=== PATIENT | male | born 1965 | race Two or more races ===

== ENCOUNTER 2020-03-28 16:15 | Outpatient (REF) | payer OTHER, SELFPAY | END 2020-03-28 16:16 | disposition home or self-care (01) | LOC: HO.LAB 16:15 | PROVIDERS: Visit Provider Internal Medicine | DX: Z20.822 Contact with and (suspected) exposure to COVID-19 (principal) | CPT/HCPCS: 36415; C9803; U0003; U0005 ==

== ENCOUNTER 2020-03-28 16:34 | Outpatient (REF) | payer OTHER, SELFPAY ==
[2020-03-28 18:09] LABS: Prostate Specific Antigen 0.16 ng/mL (<0.05-4.0)
== END 2020-03-28 16:35 | disposition home or self-care (01) ==
LOC: HO.LAB 16:34
PROVIDERS: Visit Provider Urology
DX: Z12.5 Encounter for screening for malignant neoplasm of prostate (principal); C61 Malignant neoplasm of prostate
CPT/HCPCS: 36415; 84153

== ENCOUNTER → 2020-04-04 14:09 | Outpatient (BNVA) | payer OTHER, SELFPAY | PROVIDERS: Visit Provider Urology | DX: C61 Malignant neoplasm of prostate (principal); N52.01 Erectile dysfunction due to arterial insufficiency | CPT/HCPCS: 99212 ==

== ENCOUNTER 2020-05-13 08:36 | Day surgery (SDC) | payer OTHER, SELFPAY ==
[2020-05-07 10:10] VITALS: BMI 27.1
[2020-05-10 09:24] VITALS: BMI 29.8
[2020-05-13 09:51] VITALS: BP 137/85; PULSE 66; RESP 16; TEMP 36.3; O2SAT 96
[2020-05-13 10:15] LABS: Glucose, Whole Blood 111 mg/dL (60-115)
[2020-05-13] MEDS: Lactated Ringers 1,000 ML 50 ML IV (10:17)
--- NOTE | 2020-05-13 10:32 | HO.ANESPROP2 ---
[facility] Active Problems Active Problems: All Active Problems (Updated 05/10/20 @ 09:28 by Martha Meeks) Prostate cancer (Acute) Erectile dysfunction due to arterial insufficiency (Acute) Past Medical History Medical History Depression Diabetes Elevated cholesterol Erectile dysfunction History of prostate cancer Low back pain Shoulder pain, bilateral Sleep apnea Smoker Surgical History Surgical History Hx of colonoscopy Hx of prostate biopsy Social History Social History Alcohol intake: never Smoking Status: Current every day smoker Tobacco Type: Cigarette Cigarettes Per Day: 8 Use of substances other than those prescribed or required for medical reasons: Yes Substance Use Type: Marijuana Substance Use Frequency: Daily Advance Directives: No Advance Directives Information Provided: No Advance Directives on File: No Meds Allergies Allergy/AdvReac Type Severity Reaction Status Date / Time No Known Allergies Allergy Verified 05/13/20 09:48 [No Known Allergies*] Active Medications: Current Medications Generic Name Dose Route Start Last Admin Trade Name Filiq PRN Reason Stop Dose Admin Lactated Ringer's 1,000 mls @ 50 mls/hr 05/13/20 07:30 05/13/20 10:17 Lr IV 50 mls/hr .Q20H MARIBEL Administration Ceftriaxone Sodium 2 gm/ 50 mls @ 100 mls/hr 05/13/20 10:07 Sodium Chloride IV 05/13/20 10:36 ONCE ONE Gentamicin Sulfate 80 mg/ 102 mls @ 100 mls/hr 05/13/20 10:10 Sodium Chloride IV 05/13/20 11:11 ONCE ONE Home Medications Medication Instructions Recorded Confirmed Last Taken Type alcohol swabs pad TOPICAL DAILY 04/04/20 Unknown History atorvastatin 80 mg tablet 80 mg PO DAILY 04/04/20 Unknown History blood sugar diagnostic #10 ea 04/04/20 Unknown History lancets 33 gauge #100 ea 04/04/20 Unknown History metformin 500 mg tablet 500 mg PO BID 04/04/20 05/10/20 Unknown History tadalafil 10 mg tablet 10 mg PO DAILY PRN 04/04/20 Unknown History tramadol 50 mg tablet 50 mg PO BID PRN 04/04/20 05/10/20 Unknown History Exam Exam Date and Time: May 13, 2020 1032 Height,Weight and Vital Signs: Height 6 ft Weight 99.79 kg Last Vital Signs Temp 97.4 F 05/13/20 09:51 Pulse 66 05/13/20 09:51 Resp 16 05/13/20 09:51 BP 137/85 05/13/20 09:51 Pulse Ox 96 05/13/20 09:51 Pertinent Lab Results Pertinent Lab Results: Laboratory Tests 05/13/20 10:00 POC Glucose 111 Airway Mallampati Class: II TM Dist: >3cm Neck ROM: Full Denture: Upper Heart: RRR Lungs: NL Assessment and Plan Assessment Anesthesia Assessment: Anesthesia Plan Discussed and Chart Reviewed Final Anesthetic Review NPO: Yes ASA Class: III Final Preanesthetic Review: No Changes in Pt Med Stat, Meds/Allgs Chart Reviewed, Consent Obtained/Reviewed and Anes Risks/Benef Reviewed Patient Risk: Intermediate Procedure Risk: Low Anesthetic Plan Anesthetic Plan: GA Disposition: Standard PACU
[2020-05-13] MEDS: cefTRIAXone sodium 2 GM in 0.9 % Sodium Chloride 50 ML IV (10:33)
--- NOTE | 2020-05-13 11:03 | MHC.SHP ---
Pre-Procedural Eval Section B Chief Complaint: ED Details of Present Illness: persistent following treatment for prostate cancer Relevant Family History (Specify if Yes): No Relevant Social History: None Present Medications: see Short Stay Collaborative assessment Medical History: Significant History History of Previous Operations: No relevant previous surgery Allergies: Allergies Allergy/AdvReac Type Severity Reaction Status Date / Time No Known Allergies Allergy Verified 05/13/20 09:48 [No Known Allergies*] Review of Systems Sugical H&P ROS: Negative: Constitution, Cardiovascular, Respiratory, Neurological, Psychiatric, Hem-Onc, Allergic/Immunologic, Gastrointestinal, Genitourinary, Musculoskeletal, Integumentary, Endocrine and Eyes/Ears/Nose/Throat Exam Surgical H&P Exam: Normal: HEENT, Normal: Heart, Normal: Lungs, Normal: Extremities, Normal: Abdomen, Normal: Skin and Normal: Neurological Plan Diagnosis/Plan: Unchanged ( placement of penile prosthetic) I have reviewed the history and physical and performed a pertinent physical examination on my patient. No changes have occurred unless specified.
[2020-05-13 12:09] VITALS: BP 123/68; PULSE 66; RESP 16; TEMP 36.6; O2SAT 94
[2020-05-13 12:15] VITALS: BP 127/81; PULSE 68; RESP 18; O2SAT 96
[2020-05-13 12:20] VITALS: BP 139/88; PULSE 64; RESP 16; O2SAT 97
[2020-05-13 12:25] VITALS: BP 126/89; PULSE 64; RESP 18; O2SAT 98
== END 2020-05-13 12:51 | disposition home or self-care (01) ==
PROVIDERS: Visit Provider Urology
DX: N52.9 Male erectile dysfunction, unspecified (principal); Z53.8 Procedure and treatment not carried out for other reasons; E11.9 Type 2 diabetes mellitus without complications
CPT/HCPCS: 82947; J0696; J1100; J1580; J2250; J2405; J3010; J3370

== ENCOUNTER 2020-05-27 07:01 | Day surgery (SDC) | payer OTHER, SELFPAY ==
--- NOTE | 2020-05-23 15:04 | P.CONAN_ITS ---
Documented by User: Catherine Morse 05/23/20 15:06 HPI - Anesthesia Eval Consult details Narrative: 55yo M for Penile Prosthesis Insertion (Case was aborted 05/13/20 d/t power outage in OR) PMF Active Problems Active Problems: All Active Problems (Updated 05/10/20 @ 09:28 by Martha Meeks) Prostate cancer (Acute) Erectile dysfunction due to arterial insufficiency (Acute) Past Medical History Medical History Depression Diabetes Elevated cholesterol Erectile dysfunction History of prostate cancer Low back pain Shoulder pain, bilateral Sleep apnea Smoker Surgical History Surgical History Hx of colonoscopy Hx of prostate biopsy Social History Social History Alcohol intake: never Smoking Status: Current every day smoker Tobacco Type: Cigarette Packs Per Day: 0.5 Cigarettes Per Day: 10.0 Use of substances other than those prescribed or required for medical reasons: No Substance Use Type: Marijuana Advance Directives: No Advance Directives Information Provided: Yes Meds Allergies Allergy/AdvReac Type Severity Reaction Status Date / Time No Known Allergies Allergy Verified 05/13/20 09:48 [No Known Allergies*] Home Medications Medication Instructions Recorded Confirmed Last Taken Type alcohol swabs pad TOPICAL DAILY 04/04/20 Unknown History atorvastatin 80 mg tablet 80 mg PO DAILY 04/04/20 Unknown History blood sugar diagnostic #10 ea 04/04/20 Unknown History lancets 33 gauge #100 ea 04/04/20 Unknown History metformin 500 mg tablet 500 mg PO BID 04/04/20 05/10/20 Unknown History tadalafil 10 mg tablet 10 mg PO DAILY PRN 04/04/20 Unknown History tramadol 50 mg tablet 50 mg PO BID PRN 04/04/20 05/10/20 Unknown History Exam Exam Date and Time: May 23, 2020 1504 Assessment and Plan Assessment Anesthesia Assessment: Chart Reviewed Documented by User: Sarah Morton 05/27/20 08:44 PMFSH Past Medical History Medical History Depression Diabetes Elevated cholesterol Erectile dysfunction History of prostate cancer Low back pain Shoulder pain, bilateral Sleep apnea Smoker Surgical History Surgical History Hx of colonoscopy Hx of prostate biopsy Social History Social History Alcohol intake: never Smoking Status: Current every day smoker Tobacco Type: Cigarette Packs Per Day: 0.5 Cigarettes Per Day: 10.0 Use of substances other than those prescribed or required for medical reasons: No Substance Use Type: Marijuana Advance Directives: No Advance Directives Information Provided: Yes Meds Allergies Allergy/AdvReac Type Severity Reaction Status Date / Time No Known Allergies Allergy Verified 05/13/20 09:48 [No Known Allergies*] Home Medications Medication Instructions Recorded Confirmed Last Taken Type alcohol swabs pad TOPICAL DAILY 04/04/20 Unknown History atorvastatin 80 mg tablet 80 mg PO DAILY 04/04/20 Unknown History blood sugar diagnostic #10 ea 04/04/20 Unknown History lancets 33 gauge #100 ea 04/04/20 Unknown History metformin 500 mg tablet 500 mg PO BID 04/04/20 05/10/20 Unknown History tadalafil 10 mg tablet 10 mg PO DAILY PRN 04/04/20 Unknown History tramadol 50 mg tablet 50 mg PO BID PRN 04/04/20 05/10/20 Unknown History Exam Airway Mallampati Class: II TM Dist: >3cm Neck ROM: Full Partial: Upper Heart: RRR Lungs: CTA Assessment and Plan Assessment Anesthesia Assessment: Anesthesia Plan Discussed and Chart Reviewed Final Anesthetic Review NPO: Yes ASA Class: III Final Preanesthetic Review: No Changes in Pt Med Stat and Consent O btained/Reviewed Patient Risk: Intermediate Procedure Risk: Intermediate Anesthetic Plan Anesthetic Plan: GA Disposition: Standard PACU
[2020-05-27] VITALS (11 sets, daily range): BP systolic 115–136; BP diastolic 69–97; PULSE 57–97; RESP 16–18; TEMP 36–36.1; O2SAT 92–97; BMI 29.8
[2020-05-27 08:35] LABS: Glucose, Whole Blood 116 mg/dL (60-115)
[2020-05-27] MEDS: Lactated Ringers 1,000 ML 50 ML IV (08:45)
[2020-05-27] MEDS: cefTRIAXone sodium 2 GM in 0.9 % Sodium Chloride 50 ML IV (09:53)
--- NOTE | 2020-05-27 10:33 | MHC.SHP ---
Pre-Procedural Eval Section A The patient is an INPATIENT: No Changes since office visit: No Cold of Flu in the past 2 weeks, No New Medical Problems, No Changes in Medication and No Patient answered all questions The History & Physical has been completed within 30 days and I have reviewed it.: Yes Section B Chief Complaint: ED Allergies: Allergies Allergy/AdvReac Type Severity Reaction Status Date / Time No Known Allergies Allergy Verified 05/13/20 09:48 [No Known Allergies*] Plan Diagnosis/Plan: Unchanged (Penile prosthesis. Case have been delayed after OR power loss last week.) I have reviewed the history and physical and performed a pertinent physical examination on my patient. No changes have occurred unless specified.
--- NOTE | 2020-05-27 13:23 | W.PM.OPN ---
Operative Note Operative Note Date of Service: 05/27/20 Narrative: PreOperative Diagnosis: Erectile dysfunction secondary to radiation therapy for prostate cancer Post Operative Diagnosis: Erectile dysfunction secondary to radiation therapy for prostate cancer Procedure: 1. Placement of penile prosthetic 2. Scrotalplasty Surgeon: Dr Nicanor Wagner Anesthesia: General Indications for procedure: 55-year-old male. Background of diabetes. Had Syeda 8 prostate cancer and was managed with radiation. Subsequently has had inability to gain erections. Has trialed oral medication, penile injections and penile vacuum pump. He requested penile prosthesis. He is aware of the risks and benefits related to infection, bleeding, need for revision. Procedure: After informed consent was verified the patient was brought to the operating room and placed in a supine position. anesthesia was administered per protocol. The patient was prepped and draped in sterile fashion. We used a double prep with chlorhexidine and 3 minutes wait time for full drying. After the patient was prepped and draped in sterile fashion Guerra catheter was placed. The bladder was emptied. This was then clamped on the field. A [place] retractor was placed. The penis was examined. On the ventral surface the penoscrotal junction could be seen to ride on the shaft. In order to gain maximum length for the prosthetic a check bernadette was placed on the scrotal skin. This will have the effect of dropping the penoscrotal back approximately 1 in and adding to the appearance of the length of the penis. This incision allowed for lateral and vertical movement of the skin. We then were able to dissect down and dissected the corpora bilaterally. We stayed in avascular plane. Once this area was detected we were able to use books on a tractor. We then pre-placed our stay sutures. We placed for stay sutures. Then used a knife to divide in into the corpora. We performed this 1st on the left-hand side. We dilated corpora. Initially on the left side we dilated using the straight dilators that come with the AMS kit. We realizes we got to the 12 dilator that there was crossover in the dilatation. We redilated. At this point we decided to dilate on the right side. We placed a 4 stay sutures. We were able to dilate using Hegar dilators and leaving the [address] then redilated on the left side to make sure there was no crossover. At this point we were happy with our dilation of the corpora. We then went to placement of the penile prosthetic. The reservoir was the 1st thing placed. A to do this we were able to dissect and then pop through the inguinal canal posterior wall into the space of Retzius. We placed a low-profile balloon. We filled this with 100 cc in it appeared to be in good position. We then able to clamp the tubing with 2 rubber shots. The next step was to place the penile prosthetic. We placed the right arm of the prosthetic 1st the prosthetic had been measured at 21 cm. We used an 18 cm prosthetic with a 3 cm rear tip. Both sides had measured at 21 cm. The right side of the prosthetic was placed first. We used a needle which was advanced with a needle Passer through the glans. The posterior arm of the prosthetic was then placed down through our corporotomy. The needle was then pulled and the anterior aspect of the prosthetic was placed in the corpora on the right side. Copious irrigation was used throughout. Similar procedure was repeated on the left side. Once both corpora were in place we tested the prosthetic. The prosthetic filled nicely and had sufficient length. There was more than adequate torsional rigidity. The prosthetic was deflated. The corporotomies were closed with the pre-placed sutures. The reservoir pump was then placed in the sub dartos pouch on the right scrotum. This was held in place with a [place] clamp. The overlying tissue was closed with a 3-0 Vicryl. Deep tissue was closed with 3-0 Vicryl. A drain was placed exiting the left scrotum. This was a 7 drain. With these in place we then connected the reservoir to the pump. Both ends were confirmed to have sufficient length within the crimping device. Copious irrigation had been used. The crimping device was then used to crimp the ends together on 2 different angles. The tubing was then placed below a layer of subcutaneous tissue which was closed with a are 3-0 Vicryl. We then reapproximated the skin edges at the check bernadette. The skin edges were then placed together using interrupted 4-0 chromic. Dressing was placed consisting of Xeroform gauze, Telfa and a Tegaderm. The penis was placed pointing to warts the chin and taped to the abdomen. The Guerra catheter was emptied and a cap placed to allow emptying postprocedure. The drain was sutured in place with a 2-0 nylon. He tolerated the procedure well was extubated in operating room transferred in a stable condition to the recovery area. Pathology: none Drains: 7 flat bulb syringe
[2020-05-27] MEDS: oxyCODONE HCl Immed Release 5 MG TABLET PO (13:28)
[2020-05-27] MEDS: fentaNYL citrate/PF 100 MCG/2 ML VIAL 50 MCG IVPUSH ×2 (13:32→13:45)
--- NOTE | 2020-05-27 16:18 | PC.NURSE ---
1457 RETURN TO PACU 1 ASST PT W CLOTHING CHANGE AND IV DCD PLAN TO AMB TO DC AREA PT BETTER STANDING VS SIT
== END 2020-05-27 15:49 | disposition home or self-care (01) ==
PROVIDERS: Visit Provider Urology
PROC: (CPT 54405; principal; 2020-05-27 09:10)
DX: N52.35 Erectile dysfunction following radiation therapy (principal); Z85.46 Personal history of malignant neoplasm of prostate; E11.9 Type 2 diabetes mellitus without complications; G47.30 Sleep apnea, unspecified; Z79.84 Long term (current) use of oral hypoglycemic drugs; Z79.899 Other long term (current) drug therapy; F17.210 Nicotine dependence, cigarettes, uncomplicated
CPT/HCPCS: 54405; 82947; C1813; J0696; J1100; J1580; J1885; J2250; J2405; J3010; J3370

== ENCOUNTER → 2020-05-28 10:40 | Outpatient (BNVA) | payer OTHER, SELFPAY | PROVIDERS: Visit Provider Urology | DX: N52.01 Erectile dysfunction due to arterial insufficiency (principal); C61 Malignant neoplasm of prostate | CPT/HCPCS: 99212 ==

== ENCOUNTER → 2020-06-12 08:27 | Outpatient (BNVA) | payer OTHER, SELFPAY | PROVIDERS: Visit Provider Urology | DX: N52.01 Erectile dysfunction due to arterial insufficiency (principal) | CPT/HCPCS: 99212 ==

== ENCOUNTER → 2020-07-12 14:12 | Outpatient (BNVA) | payer OTHER, SELFPAY | PROVIDERS: Visit Provider Urology | DX: Z13.89 Encounter for screening for other disorder (principal) | CPT/HCPCS: 99212 ==

== ENCOUNTER 2020-10-23 11:21 | Outpatient (REF) | payer OTHER, SELFPAY ==
[2020-10-23 13:45] LABS: Hematocrit 39.8 % (42-52); Hemoglobin 13.8 g/dl (14.0-18.0); Mean Corpuscular HGB Conc 34.7 g/dl (31.0-36.0); Mean Corpuscular Hemoglobin 33.4 pg (27.0-33.0); Mean Corpuscular Volume 96.4 fL (80-98); Mean Platelet Volume 11.1 fL (9.4-12.4); Platelet Count 175 X10*3/uL (160-400); Red Blood Count 4.13 X10*6/uL (4.60-5.80); Red Cell Distribution Width 13.1 % (11.0-16.0); White Blood Count 6.5 X10*3/uL (4.8-10.8)
[2020-10-23 13:50] LABS: Appearance Urine CLEAR; Color Urine YELLOW; Glucose Urine UA NEG (NEG); Leukocyte Esterase Urine NEG (NEG); Nitrite Urine NEG (NEG); PH 5.5 (5.0-8.0); Specific Gravity - Urine >= 1.030 (1.005-1.025); Urine Blood NEG (NEG); Urine Ketones NEG (NEG); Urine Protein NEG (NEG-TRACE)
[2020-10-23 14:00] LABS: Squamous Epithelial Cell Urine 1+ /LPF
[2020-10-23 14:02] LABS: RBC Urine 0-2 /HPF (0); Uric Acid Crystals Urine 1+ /LPF; WBC Urine 0 /HPF (0-4)
[2020-10-23 14:16] LABS: Anion Gap 11 (12-20); Blood Urea Nitrogen 15 mg/dL (9-16); Calcium 9.2 mg/dL (8.4-10.2); Carbon Dioxide 25 mmol/L (22-29); Chloride 109 mmol/L (96-108); Estimated Glomerular Filt Rate > 60; Potassium 4.2 mmol/L (3.3-5.1); Sodium 141 mmol/L (135-145)
[2020-10-23 14:23] LABS: Total Protein Urine Random 8 mg/dL (<12)
[2020-10-23 14:39] LABS: Vitamin D 25-OH Total 23.6 ng/mL (>30)
[2020-10-24 15:32] LABS: Prot Elec - Albumin 4.2 g/dL (3.8-4.8); Prot Elec - Alpha1 0.3 g/dL (0.2-0.3); Prot Elec - Alpha2 0.6 g/dL (0.5-0.9); Prot Elec - Beta 1 0.5 g/dL (0.4-0.6); Prot Elec - Beta 2 0.4 g/dL (0.2-0.5); Prot Elec - Total Protein 6.9 g/dL (6.1-8.1)
[2020-10-27 06:31] LABS: PTHI 46 pg/mL (14-64)
== END 2020-10-23 11:22 | disposition home or self-care (01) ==
LOC: HO.10HDL 11:21
PROVIDERS: Visit Provider Internal Medicine Nephrology
DX: N18.31 Chronic kidney disease, stage 3a (principal)
CPT/HCPCS: 36415; 80051; 81001; 82306; 82310; 82565; 83970; 84100; 84156; 84165; 84520; 84550; 85027

== ENCOUNTER 2021-01-08 08:47 | Outpatient (REF) | payer OTHER, SELFPAY ==
[2021-01-08 11:01] LABS: Prostate Specific Antigen 0.17 ng/mL (<0.05-4.0)
== END 2021-01-08 08:48 | disposition home or self-care (01) ==
LOC: HO.LAB 08:47
PROVIDERS: Visit Provider Urology
DX: C61 Malignant neoplasm of prostate (principal)
CPT/HCPCS: 36415; 84153

== ENCOUNTER 2021-01-29 17:00 | Outpatient (RCR) | payer OTHER, SELFPAY | END 2021-01-29 17:41 | disposition home or self-care (01) | LOC: HO.PT 17:00 | PROVIDERS: PCP Internal Medicine; Visit Provider Internal Medicine | DX: M25.511 Pain in right shoulder (principal) | CPT/HCPCS: 97110; 97112; 97150; 97161; 97530 ==

== ENCOUNTER 2021-10-06 17:07 | Outpatient (REF) | payer OTHER, SELFPAY ==
[2021-10-06 18:21] LABS: PSA,Total (Free>4and<10) 0.15 ng/mL (0.00-4.00)
== END 2021-10-06 17:08 | disposition home or self-care (01) ==
LOC: HO.LAB 17:07
PROVIDERS: Visit Provider Urology
DX: Z12.5 Encounter for screening for malignant neoplasm of prostate (principal); C61 Malignant neoplasm of prostate
CPT/HCPCS: 36415; 84153

== ENCOUNTER → 2021-10-10 13:57 | Outpatient (BNVA) | payer OTHER, SELFPAY | PROVIDERS: PCP Internal Medicine; Visit Provider Urology | DX: C61 Malignant neoplasm of prostate (principal) | CPT/HCPCS: 99212 ==

== ENCOUNTER 2021-11-24 04:25 | Emergency (ER) | payer OTHER, SELFPAY ==
[2021-11-24 04:42] VITALS: BP 139/87; PULSE 72; RESP 16; TEMP 36.8; O2SAT 94; BMI 27.1
[2021-11-24 05:00] LABS: Strep A Nucleic Acid Negative (Negative)
[2021-11-24 05:08] LABS: IDNOW Serial# 16C4AD1C; Influenza A Negative (Negative); Influenza B2 Negative (Negative)
[2021-11-24 05:09] LABS: COVID-19 Test Negative (Negative)
[2021-11-24 06:43] VITALS: BP 141/90; PULSE 85; TEMP 36.9; O2SAT 97
[2021-11-24 07:22] VITALS: BP 128/88; PULSE 84; RESP 18; TEMP 36.9; O2SAT 98
--- NOTE | 2021-11-24 08:08 | ED.EAR ---
HPI - Ear Problem General Chief complaint: Ear Problems Stated complaint: ear pain? 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 He denies any recent swimming but does rinse his ears with water . Related Data Home Medications Medication Instructions Recorded Confirmed alcohol swabs pad topical DAILY diabetes mellitus 04/04/20 atorvastatin 80 mg tablet 80 mg PO DAILY 04/04/20 blood sugar diagnostic #10 ea 04/04/20 lancets 33 gauge #100 ea 04/04/20 metformin 500 mg tablet 500 mg PO BID 04/04/20 05/10/20 tadalafil 10 mg tablet 10 mg PO DAILY PRN 04/04/20 tramadol 50 mg tablet 50 mg PO BID PRN Pain 04/04/20 05/10/20 cholecalciferol (vitamin D3) 50 50 mcg PO DAILY 05/28/20 mcg (2,000 unit) capsule oxycodone 5 mg tablet 5 mg PO Q8H PRN pain 06/12/20 Previous Rx's Medication Instructions Recorded levofloxacin 500 mg tablet 500 mg PO DAILY 5 days #5 tabs 05/27/20 oxycodone 5 mg capsule 5 mg PO Q8H PRN pain 3 days #20 05/27/20 caps ciprofloxacin 0.2 %-hydrocortisone 3 drp otic (ear) right BID 7 days 11/24/21 1 % ear drops,suspension (Cipro HC) #10 mL Allergies Allergy/AdvReac Type Severity Reaction Status Date / Time No Known Allergies Allergy Verified 10/10/21 08:27 [No Known Allergies*] Review of Systems Review of Systems: Pertinent positives and negatives as stated in HPI 10 point review of systems is otherwise negative. PMFSH Past Medical History Source: nursing notes reviewed Medical History Depression Diabetes Elevated cholesterol Erectile dysfunction History of prostate cancer Low back pain Shoulder pain, bilateral Sleep apnea Smoker Surgical History Hx of colonoscopy Hx of prostate biopsy Social History Social History Alcohol intake: never Patient Tobacco Use Status: Current everyday Tobacco user Cigarette Packs Per Day: 0.5 Cigarettes Per Day: 10.0 Use of substances other than those prescribed or required for medical reasons: Yes Substance Use Type: Marijuana Advance Directives: No Advance Directives Information Provided: Yes Physical Exam Vital Signs: Vital Signs: Last Vital Signs Temp 98.4 F 11/24/21 07:22 Pulse 84 11/24/21 07:22 Resp 18 11/24/21 07:22 BP 128/88 11/24/21 07:22 Pulse Ox 98 11/24/21 07:22 O2 Del Method 11/24/21 07:22 BMI result Body Mass Index 27.1 VITAL SIGNS: Reviewed. GENERAL: Well developed, well nourished, in no acute distress. HEAD: Normocephalic/atraumatic EYES: PERRLA, EOMI EARS: RIGHT -Ext canals with swelling but no erythema, abnormality, TMs non-bulging and non-erythematous; LEFT- Ext canals without abnormality, TMs non-bulging and non-erythematous NOSE: Nares patent bilateral OROPHARYNX: no oral lesions noted, posterior pharynx clear and non-erythematous without noted tonsillar enlargement/erythema/exudates NECK: Supple, no adenopathy LUNGS: Normal breath sounds. No adventitious sounds or accessory muscle use. SpO2<98> CARDIOVASCULAR: Regular rate and rhythm without noted murmurs ABDOMEN: Soft, non-tender, non-distended with bowel sounds. MUSCULOSKELETAL: No tenderness, deformities, or effusions noted on gross inspection. EXTREMITIES: No cyanosis, clubbing or edema. SKIN: Inspection of the skin reveals no rashes NEUROLOGIC: Alert and oriented x 4. Strength and sensation to light touch were grossly intact x 4. Course Course Course Narrative: 56-year-old male with history and clinical presentation most suggestive of otitis externa and on review of all investigations there are no other acute findings. Patient will be placed on antibiotic ear drops as he has underlying diabetes and he was instructed to follow-up with his primary care provider. MDM - Ear Lab Data Labs: Lab Results 11/24/21 11/24/21 11/24/21 Range/Units 04:47 04:47 04:47 COVID-19 (JT) Negative (Negative) COVID-19 Clin Com See Note Influenza Type A (JO) Negative (Negative) Influenza Type B (JO) Negative (Negative) Influenza A & B Note See Note S. pyogenes GrpA JO Negative (Negative) Discharge Plan Discharge Clinical Impression: Otitis externa Patient Disposition: Home, Self-Care Instructions: Otitis Externa (ED) Additional Instructions: 1. Reanudar todos los medicamentos caseros seg?n lo prescrito. 2. Complete todo el curso de antibi?ticos para los o?dos. 3. Korey un seguimiento con pino proveedor de atenci?n primaria en los pr?ximos 1 a 2 d?as para flory reevaluaci?n. 4. Recomendar Tylenol/ibuprofeno de venta gerardo seg?n sea necesario para controlar el dolor. Regrese a la esteban de emergencias si los s?ntomas empeoran. Prescriptions: New Cipro HC 0.2-1 % drops,suspension 3 drp otic (ear) right BID 7 Days Qty: 10 0RF No Action oxycodone 5 mg capsule 5 mg PO Q8H PRN (Reason: pain) 3 Days Qty: 20 0RF levofloxacin 500 mg tablet 500 mg PO DAILY 5 Days Qty: 5 0RF oxycodone 5 mg tablet 5 mg PO Q8H PRN (Reason: pain) (DME) lancets 33 gauge misc See Rx Instructions .ROUTE .MEDSUPPLY Qty: 100 Rx Instructions: As directed alcohol swabs Pads, Medicated topical DAILY (DME) blood sugar diagnostic Strip See Rx Instructions Not Applicable DAILY Qty: 10 Rx Instructions: As directed tramadol 50 mg tablet 50 mg PO BID PRN (Reason: Pain) metformin 500 mg tablet 500 mg PO BID Label Comments: I don't take it every day, only when my blood sugar is high, like 130-140 atorvastatin 80 mg tablet 80 mg PO DAILY tadalafil 10 mg tablet 10 mg PO DAILY PRN cholecalciferol (vitamin D3) 50 mcg (2,000 unit) capsule 50 mcg PO DAILY Referrals: Latasha Duron MD [Primary Care Provider] - Print Language: Malagasy
== END 2021-11-24 08:52 | disposition home or self-care (01) ==
PROVIDERS: Emergency Provider Student in an Organized Health Care Education/Training Program; PCP Internal Medicine
DX: H60.91 Unspecified otitis externa, right ear (principal); H92.01 Otalgia, right ear; Z20.822 Contact with and (suspected) exposure to COVID-19; E11.9 Type 2 diabetes mellitus without complications; E78.00 Pure hypercholesterolemia, unspecified; F17.210 Nicotine dependence, cigarettes, uncomplicated; F12.90 Cannabis use, unspecified, uncomplicated; Z85.46 Personal history of malignant neoplasm of prostate; Z79.02 Long term (current) use of antithrombotics/antiplatelets; Z79.899 Other long term (current) drug therapy
CPT/HCPCS: 36415; 87502; 87635; 87651; 99283; 99284

== ENCOUNTER 2022-06-18 06:57 | Outpatient (REF) | payer OTHER, SELFPAY | END 2022-06-18 06:58 | disposition home or self-care (01) | LOC: HO.LAB 06:57 | PROVIDERS: Visit Provider Urology | DX: Z13.89 Encounter for screening for other disorder (principal) ==

== ENCOUNTER 2022-06-19 08:05 | Outpatient (REF) | payer OTHER, SELFPAY ==
--- NOTE | ~2022-06-19 | CT_ITS ---
EXAMINATION: CT ABDOMEN AND PELVIS WITHOUT AND WITH CONTRAST CLINICAL INFORMATION: Hematuria COMPARISON: None available. TECHNIQUE: Multidetector volumetric imaging was performed of the abdomen and pelvis before and after the IV administration of 85 mL of Omnipaque 350 intravenous contrast. Sagittal and coronal reformatted images were obtained on the technologist's workstation. This CT examination was performed using dose optimization techniques as appropriate, variously including the following: *Automated exposure control *Adjustment of mA and/or kV according to patient size (this includes techniques or standardized protocols for targeted exams where dose is matched to indication/reason for exam; i.e. extremities or head) *Use of iterative reconstruction technique DLP: 1015 mGy-cm FINDINGS: LUNG BASES: There is dependent atelectasis. Heart size is normal. LIVER, GALLBLADDER, AND BILIARY TREE: The liver is normal in size, shape, and attenuation. No focal hepatic lesion or biliary ductal dilatation is present. There is a 1.0 cm dependent radiopaque gallstone without wall thickening or pericholecystic fluid collection. PANCREAS: Unremarkable SPLEEN: Unremarkable ADRENAL GLANDS: Unremarkable KIDNEYS AND URETERS: The kidneys are normal in size, shape, and attenuation. No hydronephrosis, hydroureter, or calculi seen. No perinephric stranding. BLADDER: Unremarkable GASTROINTESTINAL TRACT: There is scattered stool and gas seen throughout the colon without distention. The small bowel loops are normal caliber. The appendix is not visualized. No inflammatory process or free air seen. There is a penile reservoir in the right lower pelvis. ABDOMINAL WALL: No significant hernia is appreciated. LYMPH NODES: Normal VASCULAR: Unremarkable PELVIC VISCERA: Unremarkable OSSEOUS STRUCTURES: There are degenerative disc changes with vacuum disc phenomena and spondylosis L5-S1 disc level. No aggressive lytic or sclerotic process seen. The paravertebral soft tissues are normal. There is mild right L4-L5 facet joint arthropathy. CT/CT abdomen pelvis wo/w IV con IMPRESSION: No radiopaque urolith or hydroureteronephrosis seen. No enhancing renal mass or cyst. The bladder is unremarkable. Fleischner guidelines were followed.
[2022-06-19] MEDS: iohexoL 350 MG/ML 100 ML INFUS..BTL IV (08:57)
[2022-06-19 13:20] LABS: Creatinine POC 0.9 mg/dL (0.5-1.4); GFR POC > 60
== END 2022-06-19 08:06 | disposition home or self-care (01) ==
LOC: HO.CT 08:05
PROVIDERS: PCP Internal Medicine; Visit Provider Internal Medicine Nephrology
DX: N18.31 Chronic kidney disease, stage 3a (principal)
CPT/HCPCS: 74178; 82565; Q9967